=== PATIENT | male | born 1980 | race Caucasian/White ===

== ENCOUNTER 2021-02-08 09:28 | Emergency (ER) | payer OTHER, SELFPAY ==
[2021-02-08 09:37] VITALS: BP 169/85; PULSE 88; RESP 16; TEMP 37; O2SAT 99
--- NOTE | 2021-02-08 10:26 | ED.MALEGU ---
HPI - Male Genitourinary General Chief complaint: Urogenital-Male Stated complaint: pain in groin Time Seen by Provider: 02/08/21 10:07 Source: patient and RN notes reviewed Mode of arrival: ambulatory Limitations: no limitations History of Present Illness HPI Narrative: Patient presents today complaining of 10 to 14 days of penis and testicular pain and describes the pain as burning. It is not worsening or improving. He describes swelling in the testicles for the past 7 days denies any injury or trauma. Reports some mild pain with urination. Denies discharge or drainage from the penis. Currently rates pain 6/10. Patient has 1 female sexual partner, his . MD Complaint: testicle pain, testicle swelling and dysuria Related Data Allergies Allergy/AdvReac Type Severity Reaction Status Date / Time No Known Allergies Allergy Other Uncoded 02/08/21 09:51 Review of Systems Review of Systems: CONSTITUTIONAL: Denies body aches, fever, chills, or sweats. EYES: Denies visual changes, redness, or discharge. ENT: Denies rhinorrhea, congestion, sore throat, or otalgia. CARDIOVASCULAR: Denies chest pain, palpitations, or edema. RESPIRATORY: Denies cough or dyspnea. GASTROINTESTINAL: Denies abdominal pain, nausea, vomiting, or diarrhea. GENITOURINARY: Denies hematuria.+ Dysuria, penile pain, testicular pain SKIN: Denies rash, itching, or wounds. MUSCULOSKELETAL: Denies back pain, joint pain, or myalgia. NEUROLOGIC: Denies headache, numbness, tingling, or weakness. PSYCH: Denies depression or anxiety. PMFSH Comments At time of signature, I have reviewed and agree with nursing past medical, surgical, social and family history unless otherwise noted. Please see nursing chart for further information. There is no relevant family history pertinent to the presenting complaint Exam Narrative: GENERAL: Well-appearing, well-nourished, and in no acute distress. HEAD: Normocephalic, atraumatic. EYES: EOMI. No redness or drainage. Conjunctivae normal. ENT: Mucous membranes pink and moist. NECK: Normal AROM. CHEST: No respiratory distress. ABDOMEN: Soft, nontender, nondistended, normal active bowel sounds. : Penis normal in appearance and scantly tender to palpation. No discharge at the meatus noted. Testicles are nontender and do not appear swollen. Normal in color. No induration. Groin lymph nodes are nonpalpable. EXTREMITIES: Normal range of motion. No edema. SKIN: Warm, dry, no rash. Capillary refill normal. Normal skin turgor. NEURO: No focal deficits. Alert and oriented x3. Gait steady. PSYCH: Normal affect. No signs of depression or anxiety. Course Course Emergency Course: Patient states he would like to be tested and treated for gonorrhea chlamydia, and trichomonas. Vital Signs Vital signs: Vital Signs Temperature 98.6 F 02/08/21 09:37 Pulse Rate 88 02/08/21 09:37 Respiratory Rate 16 02/08/21 09:37 Blood Pressure 169/85 H 02/08/21 09:37 Pulse Oximetry 99 02/08/21 09:37 Temperature 98.6 F 02/08/21 09:37 Pulse Rate 88 02/08/21 09:37 Respiratory Rate 16 02/08/21 09:37 Blood Pressure 169/85 H 02/08/21 09:37 Pulse Oximetry 99 02/08/21 09:37 Reviewed. Pt has been instructed to follow up with his PCP regarding his elevated blood pressure today. MDM - Male Genitourinary Differential Diagnosis Differential diagnosis: Likely urinary tract infection, urethritis, epididymitis, prostatitis and inguinal hernia Lab Data Attestation: I reviewed the patient's lab results. Labs: Lab Results 02/08/21 Range/Units 10:30 C.trachomatis RNA (TMA) Pending N.gonorrhoeae RNA (TMA) Pending T. vaginalis Amp RNA Pending Urine Glucose Negative Reference Range: Negative Urine Bilirubin Negative Reference Range: Negative Urine Ketone Negative
[2021-02-08] MEDS: cefTRIAXone 500 MG, LIDOCAINE HCL 1% LOCAL INJ 1 ML IM (10:48)
== END 2021-02-08 11:00 | disposition home or self-care (01) ==
PROVIDERS: Emergency Provider Nurse Practitioner
DX: R10.30 Lower abdominal pain, unspecified (principal)
CPT/HCPCS: 81003; 87491; 87591; 87661; 96372; 99213; G0463; J0696

== ENCOUNTER 2022-02-14 09:11 | Emergency (ER) | payer OTHER, SELFPAY ==
--- NOTE | 2022-02-14 09:31 | ED.EXTPRO ---
HPI - Extremity Problem General Chief complaint: Extremity Problem,Nontraumatic Stated complaint: right 1st digit toe pain Time Seen by Provider: 02/14/22 09:34 Source: patient Mode of arrival: ambulatory Limitations: no limitations History of Present Illness HPI Narrative: Mr. Young is a 41-year-old male patient presenting to clinic today with complaints of possible gout in the right great toe. He does have a history of gout. States he has never had treatment for it. Symptoms began in December and went away however over the last week it has gradually gotten worse Related Data Allergies Allergy/AdvReac Type Severity Reaction Status Date / Time No Known Allergies Allergy Other Uncoded 02/14/22 09:40 Review of Systems Review of Systems: Pertinent positives per HPI. Patient denies any fever, chills, rash, headache, visual changes, dizziness, cough, runny nose, sore throat, shortness of breath, chest pain, palpitations, nausea, vomiting, diarrhea, constipation, abdominal pain, or any urinary issues. PMFSH Comments At the time of my signature, I reviewed and agree with the nursing past medical, surgical, social, and family history. There is no relevant family history pertinent to the patient complaint. Exam Narrative: General: Well-developed, well nourished, in no apparent distress Head: Normocephalic, atraumatic. Cardio: Regular rate and rhythm, s1 and s2 normal, no murmur appreciated. Resp: Clear to auscultation bilaterally, no rhonchi, rales, wheezing or rubs. Musculoskeletal: No deformity, swelling and redness noted to the base of the right great toe and is very tender to palpation, range of motion limited due to pain and swelling, muscle strength strong and equal, peripheral pulse strong, no edema, no cyanosis, normal gait and station Course Course Emergency Course: Portions of this record may have been created with voice recognition software. Level of Care: Express Care Visit Vital Signs Vital signs: Vital Signs Temperature 36.7 C 02/14/22 09:36 Pulse Rate 65 02/14/22 09:36 Respiratory Rate 16 02/14/22 09:36 Blood Pressure 152/105 H 02/14/22 09:36 Pulse Oximetry 99 02/14/22 09:36 Oxygen Delivery Room Air 02/14/22 09:36 Temperature 36.7 C 02/14/22 09:36 Pulse Rate 65 02/14/22 09:36 Respiratory Rate 16 02/14/22 09:36 Blood Pressure 152/105 H 02/14/22 09:36 Pulse Oximetry 99 02/14/22 09:36 Oxygen Delivery Room Air 02/14/22 09:36 Vital signs reviewed MDM - Extremity (Nontraumatic) MDM Narrative Medical decision making narrative: At the time of visit patient is resting comfortably on the exam table. I suspect patient has gout arthritis of the right great toe prescription for colchicine and prednisone was sent to the pharmacy. Supportive measures were discussed with the patient and he voiced understanding of discharge instructions and agrees to treatment plan. Differential Diagnosis Differential diagnosis: Likely other ( Gout, osteoarthritis) Discharge Plan Discharge Clinical Impression: Gouty arthritis of right great toe Patient Disposition: Home, Self-Care Condition: Stable Instructions: Antibiotic Form, Low Purine Diet (ED), Gout (ED) Additional Instructions: rest, ice, and elevate take colchicine and prednisone as prescribed may take Tylenol/ ibuprofen as needed for pain follow-up with your PCP in 3-5 days if symptoms persist or sooner if they worsen Prescriptions: New prednisone 20 mg tablet 40 mg PO DAILY 5 Days Qty: 10 0RF colchicine 0.6 mg tablet See Rx Instructions .ROUTE .COMPLEX 1 Days Qty: 3 0RF Rx Instructions: Take (2) 0.6 mg orally x 1 dose then 1 hour later take (1) 0.6mg tab Follow-up/Referrals: UNKNOWN,DOCTOR [Primary Care Provider] - Time of Disposition: 09:38 Quality NIHSS Nursing Documentation ED NIHSS nursing documentation: reviewed/agree
[2022-02-14 09:36] VITALS: BP 152/105; PULSE 65; RESP 16; TEMP 36.7; O2SAT 99
== END 2022-02-14 09:50 | disposition home or self-care (01) ==
PROVIDERS: Emergency Provider Nurse Practitioner Family
DX: M10.9 Gout, unspecified (principal)
CPT/HCPCS: 99213; G0463